=== PATIENT | female | born 1990 ===

== ENCOUNTER 2021-12-07 04:33 | Inpatient (IN) | payer BC ==
[2021-12-07] MEDS ORDERED: Tranexamic Acid 1,000 MG in Sodium Chloride 0.9% 100 ML IV PRN (05:09)
[2021-12-07] MEDS ORDERED: Methylergonovine 0.2 MG/1 ML Amp IM PRN (05:09)
[2021-12-07] MEDS ORDERED: Sodium Chloride 0.9% 20 ML SDV IV PRN (05:09)
[2021-12-07] MEDS ORDERED: Sodium Chloride 0.9% 2.5 ML Syringe FLUSH PRN (05:09)
[2021-12-07] MEDS ORDERED: Ondansetron 4 MG/2 ML SDV IVPUSH PRN (05:09)
[2021-12-07] MEDS ORDERED: Sodium Chloride 0.9% 10 ML Syringe FLUSH PRN (05:09)
[2021-12-07] MEDS ORDERED: Lidocaine 1% 50 ML MDV INJECT PRN (05:09)
[2021-12-07] MEDS ORDERED: Misoprostol 25 MCG (1/4 of 100 MCG) Tab VAG PRN ×2 (05:09)
[2021-12-07] MEDS ORDERED: Misoprostol 200 MCG Tab PO PRN (05:09)
[2021-12-07] MEDS ORDERED: Carboprost Tromethamine 250 MCG/1 ML Amp IM PRN (05:09)
[2021-12-07] MEDS ORDERED: Terbutaline 1 MG/ML SDV SUBCUT PRN (05:09)
[2021-12-07] MEDS ORDERED: Butorphanol 1 MG/ML SDV IVPUSH PRN (05:09)
[2021-12-07] MEDS ORDERED: Water For Irrigation,Sterile 1,000 ML Container IRR PRN (05:09)
[2021-12-07] MEDS ORDERED: Lactated Ringers 1,000 ML IV SCH (05:15)
[2021-12-07] MEDS ORDERED: Oxytocin/0.9 % Sodium Chloride 30 UNIT/500 ML BAG IV SCH ×2 (05:15)
[2021-12-07] MEDS ORDERED: Bisacodyl 10 MG Supp RECTAL PRN (07:37)
[2021-12-07] MEDS ORDERED: oxyCODONE 5 MG Tab PO PRN (07:37)
[2021-12-07] MEDS ORDERED: Docusate Sodium 100 MG Cap PO PRN (07:37)
[2021-12-07] MEDS ORDERED: Witch Hazel Medicated Pads 40/Jar TOP PRN (07:37)
[2021-12-07] MEDS ORDERED: Lanolin 100% Cream 7 GM Tube TOP PRN (07:37)
[2021-12-07] MEDS ORDERED: Benzocaine/Menthol 20%-0.5% Spray 78 GM Cannister TOP PRN (07:37)
[2021-12-07] MEDS ORDERED: Acetaminophen 500 MG Tab PO PRN (07:37)
[2021-12-07] MEDS ORDERED: Ibuprofen 800 MG Tab PO PRN (07:37)
[2021-12-07] MEDS ORDERED: Benzocaine/Menthol 20%-0.5% Spray 78 GM Cannister ONE (07:44)
[2021-12-07] MEDS ORDERED: Ketorolac 30 MG/ML SDV IVPUSH ONE (07:49)
== END 2021-12-08 11:59 | disposition home or self-care (01) | DRG 560 ==
LOC: MW.OBCHECK 04:33 → MW.OB 04:34 → MW.OBCHECK 05:10 → MW.OB 05:11 → OBSVTOIN 07:19 → MW.OB 13:55
PROVIDERS: ADMIT Obstetrics & Gynecology; ATTEND Obstetrics & Gynecology
PROC: 10E0XZZ Delivery of Products of Conception, External Approach (ICD-10-PCS; principal; 2021-12-07)
PROC: 10907ZC Drainage of Amniotic Fluid, Therapeutic from Products of Conception, Via Natural or Artificial Opening (ICD-10-PCS; 2021-12-07)
DX: O26.62 Liver and biliary tract disorders in childbirth (principal); K83.1 Obstruction of bile duct; Z3A.38 38 weeks gestation of pregnancy; Z87.51 Personal history of pre-term labor; Z37.0 Single live birth; O69.1XX0 Labor and delivery complicated by cord around neck, with compression, not applicable or unspecified; Z20.822 Contact with and (suspected) exposure to COVID-19; J45.909 Unspecified asthma, uncomplicated; O99.52 Diseases of the respiratory system complicating childbirth
CPT/HCPCS: 36415; 59025; 59409; 85014; 85018; 85027; 86592; 86850; 86900; 86901; A9270-GY; J2590; U0002